=== PATIENT | male | born 1950 | race Caucasian/White ===

== ENCOUNTER 2018-04-16 09:03 | Day surgery (SDC) | payer BC, OTHER ==
[~2018-04-16] VITALS: Ht 180.3 cm; Wt 85.1 kg
[~2018-04-16 09:03] MED LIST: ADULT ASPIRIN81 MG PO; LOPRESSOR25 MG PO; LOVASTATIN40 MG PO; SERTRALINE HCL50 MG PO; VICTOZA0.6 MG/0.1 SC
[2018-04-16 09:39] VITALS: BP 160/82
[2018-04-16 11:38] VITALS: BP 182/86
[2018-04-16 15:06] VITALS: BP 159/72
== END 2018-04-16 18:27 | disposition home or self-care (01) ==
LOC: SDC 09:03 → 2EAST 09:04 → SDC 14:49 → 2EAST 18:27
PROVIDERS: Ophthalmology
PROC: 08QF3ZZ Repair Left Retina, Percutaneous Approach (ICD-10-PCS; principal; 2018-04-16)
PROC: 08B53ZZ Excision of Left Vitreous, Percutaneous Approach (ICD-10-PCS; principal; 2018-04-16)
PROC: 3E0C33Z Introduction of Anti-inflammatory into Eye, Percutaneous Approach (ICD-10-PCS; principal; 2018-04-16)
PROC: 3E0C329 Introduction of Other Anti-infective into Eye, Percutaneous Approach (ICD-10-PCS; principal; 2018-04-16)
DX: E11.319 Type 2 diabetes mellitus with unspecified diabetic retinopathy without macular edema (principal); H33.8 Other retinal detachments; I25.10 Atherosclerotic heart disease of native coronary artery without angina pectoris; Z95.1 Presence of aortocoronary bypass graft; Z79.82 Long term (current) use of aspirin; I10 Essential (primary) hypertension; E78.5 Hyperlipidemia, unspecified; Z87.891 Personal history of nicotine dependence; F41.9 Anxiety disorder, unspecified
CPT/HCPCS: 82948; G0378; J0330; J0690; J0713; J2405; J3010; J7120